=== PATIENT | male | born 1935 | race Caucasian/White ===

== ENCOUNTER 2020-08-20 23:58 | Inpatient (IN) | payer MEDICARE ==
[~2020-08-20] VITALS: Ht 172.7 cm; Wt 81.2 kg
--- NOTE | 2020-08-21 00:10 | PHYS DOC ---
Past History Past Medical History: Arthritis, CAD, Hypertension General Adult HPI: HPI: ".. I was digging a ditch for an electrical line to the garage .. the other day.. probably over did.. I got this Rt. shoulder pain.. an head ache ever since.. but I came in because I keep getting ..hits of pain.. .. my chest.. it here on Lt side.. I was told I go bad cardiac.. and I got dye in my heart once.. but they said hold off a while longer.. I see Dr. rOtiz usually.. and a Dr. Duffy .. at [facility] in the past... I got a younger girl she's 72.. maybe she too young for me.. she made me come in..." "I ve been putting he methylating patches on this right shoulder... But did not do much..." " The other reason .. I came .. in was my Blood pressure cuff was reading high..." Patient is a 84 year old male who presents with above hx and complaints of chest pain has been intermittent for the last few weeks. "Hits" in this Lt chest have been more frequently after he drug a a ditch for a electric line to his garage. Patient does have a history of previous cardiac disease, hypertension, elevated cholesterol, arthritis. Patient states he had a diet test a couple of years ago that showed he had coronary artery disease. Patient advised that time I told him no acute intervention was needed. Patient normally follows with Dr. Ortiz. Patient has follow-up with Dr. Duffy Cardiology at [facility]. Patient states he has has had a headache and that is why start checking his blood pressure was showed it was elevated at home. Patient also has been wearing pain patches on right shoulder. Patient states pain in right shoulder started after digging a ditch for electrical lying to his garage. 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 Has been exposed to asbestos in the past on tanks that were wrapped with it and the various refineries. The patient denies any change in his meds. Does take a da renetta aspirin. Has had a little more frequent nonproductive cough. Patient denies any fever or chills. Patient denies any specific ill contacts. Patient denies any travel outside [facility]. Review of Systems: Review of Systems: Constitutional: Denies fever or chills Eyes: Denies change in visual acuity HENT: Denies nasal congestion or sore throat Respiratory: Denies cough or shortness of breath Cardiovascular: Complains of left chest wall pain " Hits" GI: Denies abdominal pain, nausea, vomiting, bloody stools or diarrhea : Complains sometimes it difficult for him to pee Musculoskeletal: Complains of right arm pain and shoulder pain Integument: Denies rash Neurologic: Complains of headache. Denies, focal weakness or sensory changes Endocrine: Denies polyuria or polydipsia Lymphatic: Denies swollen glands Psychiatric: Denies depression or anxiety Heart Score: HEART Score for Chest Pain: HEART Score for Chest Pain Response (Comments) Value History Moderately Suspicious 1 ECG Nonspecific Repolarizatio 1 Age > 65 2 Risk Factors 1 or 2 Risk Factors 1 Troponin < Normal Limit 0 Total 5 Risk Factors: Risk Factors: DM, Current or recent (<one month) smoker, HTN, HLP, family history of CAD, obesity. Risk Scores: Score 0 - 3: 2.5% MACE over next 6 weeks - Discharge Home Score 4 - 6: 20.3% MACE over next 6 weeks - Admit for Clinical Observation Score 7 - 10: 72.7% MACE over next 6 weeks - Early Invasive Strategies Family History: Family History: Noncontributory to presentation Current Medications: Current Meds: See nursing for him at home meds Allergies: Allergies: Allergic to penicillin Physical Exam: PE: Constitutional: no acute distress, non-toxic appearance. [] HENT: Normocephalic, atraumatic, bilateral external ears normal, oropharynx moist, no oral exudates, nose normal. [] Eyes: PERRLA, EOMI, conjunctiva normal, no discharge. [] Neck: Normal range of motion, right trapezius tenderness, some Rt. trapezius spasm, , no stridor. [] Cardiovascular:Heart rate regular rhythm, no murmur, PMI to the left Lungs & Thorax: Bilateral breath sounds equal apex with few scattered wheezes on auscultation . Does have some basilar rub s and crackles.. Abdomen: Bowel sounds normal, soft, no tenderness, no masses, no pulsatile masses. [] Skin: Warm, dry, no erythema, no rash. Poor turgor Back: No tenderness, no CVA tenderness. [] Extremities: Right shoulder deltoid tenderness, does have crepitation with range of motion in right shoulder, currently patient has 2 pain patches on his right shoulder no cyanosis, no clubbing, ROM intact, no edema. Arthritic changes. Patient is extremely hard of hearing. Neurologic: Alert and oriented X 3, moves all extremities on request, has distal sensory,, no focal deficits noted. [] Psychologic: Affect anxious, judgement normal, mood normal. [] EKG: EKG: My interpretation EKG shows a sinus rhythm at 81 bpm. He has right axis deviation. He has a right bundle branch block. No findings of acute STEMI with contralateral changes. [] Radiology/Procedures: Radiology/Procedures: [place] [address] IMAGING REPORT Signed PATIENT: JUANITA NEWBERRY ACCOUNT: [id number] : 1935 LOCATION: ER AGE: 84 SEX: M EXAM STATUS: PRE ER ORD. PHYSICIAN: WARD CHUA MD REASON: pain PROCEDURE: SHOULDER 2+V RIGHT EXAM: SHOULDER 2+V RIGHT 08/21/2020 1:37 AM CLINICAL INDICATION:Pain COMPARISON:None TECHNIQUE:3 views of the right shoulder FINDINGS:No acute fracture. Alignment is normal. There is are chronic bony changes at the greater tuberosity. Mild acromioclavicular degenerative joint disease. Subacromial space is normal. IMPRESSION: 1. No acute osseous abnormality. 2. Chronic bony changes at the greater tuberosity suggests chronic rotator cuff pathology. Electronically signed by: Anita Sifuentes MD (08/21/2020 2:55 AM) [id number] DICTATED AND SIGNED BY: ANITA SIFUENTES MD DATE: 08/21/20 0255 CC: WARD CHUA MD; APRIL ORTIZ MD ~ [address] [address] IMAGING REPORT Signed PATIENT: JUANITA NEWBERRY ACCOUNT: [id number] : 1935 LOCATION: ER AGE: 84 SEX: M EXAM STATUS: PRE ER ORD. PHYSICIAN: WARD CHUA MD REASON: head ache, neck pain PROCEDURE: CT HEAD AND CERVICAL SPINE WO EXAM: CT head and cervical spine without contrast INDICATION: Headache and back pain COMPARISON: None TECHNIQUE: Axial CT imaging through the head without intravenous contrast. Sagittal and coronal reformats were obtained. One or more of the following individualized dose reduction techniques were utilized for this examination: 1. Automated exposure control 2. Adjustment of the mA and/or kV according to patient size 3. Use of iterative reconstruction technique. FINDINGS: CT head: The ventricles and sulci are mildly enlarged, reflecting age-related volume loss. Blanco-white matter differentiation is maintained. There is no intracranial hemorrhage, acute infarct, or mass lesion. Basal cisterns are clear. The skull and scalp are intact. Paranasal sinuses and mastoid air cells are clear. Globes and orbits are intact.. CT cervical spine: No acute fracture. There is 3 mm anterolisthesis of C2 on C3 and C3 on C4. Straightening of lordosis. The craniocervical junction and atlantoaxial interval are maintained. There is severe disc space narrowing at C6-C7 and moderate disc space narrowing at C4-C5 and C5-C6. Small anterior osteophytes and uncovertebral joint proliferation at these levels. Severe left facet arthrosis at C2-C3 and severe right greater than left facet arthrosis at C3-C4. There is severe right foraminal narrowing at C4-C5 and severe right and moderate left foraminal narrowing C5-C6. Probable mild canal narrowing from C4-C5 through C6-C7. Prevertebral soft tissue is normal. IMPRESSION: 1. No acute intracranial abnormality. Mild volume loss. 2. No acute osseous abnormality. Multilevel canal and foraminal narrowing, as described. Electronically signed by: Anita Sifuentes MD (08/21/2020 2:48 AM) [id number] DICTATED AND SIGNED BY: ANITA SIFUENTES MD DATE: 08/21/20 0248 CC: WARD CHUA MD; APRIL ORTIZ MD ~ [place] [address] IMAGING REPORT Signed PATIENT: JUANITA NEWBERRY ACCOUNT: [id number] : 1935 LOCATION: ER AGE: 84 SEX: M EXAM STATUS: PRE ER ORD. PHYSICIAN: WARD CHUA MD REASON: cp, X A FEW HOURS PROCEDURE: PORTABLE CHEST 1V EXAM: PORTABLE CHEST 1V 08/21/2020 12:20 AM CLINICAL INDICATION: Chest pain for a few hours COMPARISON: None TECHNIQUE: AP upright view of the chest FINDINGS: The cardiomediastinal silhouette is normal for technique.. Lungs are well-expanded. There is mild left basilar opacities and probable bilateral retrocardiac opacities bilaterally. No pleural effusion, or pneumothorax. Probable pleural calcifications of the upper right lateral hemithorax. Pulmonary vascularity is normal. The thoracic skeleton is intact. IMPRESSION: Left basilar and probable bilateral retrocardiac opacities, which could be atelectasis or pneumonia. Lateral view may be useful to confirm. Electronically signed by: Anita Sifuentes MD (08/21/2020 1:41 AM) [id number] DICTATED AND SIGNED BY: ANITA SIFUENTES MD DATE: 08/21/20 0141 CC: WARD CHUA MD; APRIL ORTIZ MD ~ My interpretation of chest x-ray shows enlarged cardiac border. Degenerative joint changes. Appears to have pleural plaquing. [] Course & Med Decision Making: Course & Med Decision Making Pertinent Labs and Imaging studies reviewed. (See chart for details) Discussed presentation, testing and tx. plan with Dr. Agosto Admit with cardiology consult. Impression: 1. Chest Pain 2. HTN 3. Mild Leukocytosis 11.6 4. Pneumonia/ Bronchitis- Retrocardiac 5. Arthritis-DJD 7. Hematuria 8. 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 Departure Departure: Disposition: 01 DC HOME SELF CARE/HOMELESS Condition: STABLE Referrals: APRIL ORTIZ MD (PCP) Nico Disclaimer This chart was dictated in whole or in part using Voice Recognition software in a busy, high-work load, and often noisy Emergency Department environment. It may contain unintended and wholly unrecognized errors or omissions. WARD CHUA MD Aug 21, 2020 00:10
[2020-08-21 01:00] LABS: BASO # 0.1 x10^3/uL (0.0-0.2); BASO % 1 % (0-3); EOS # 0.3 x10^3/uL (0.0-0.7); EOS % 3 % (0-3); HEMATOCRIT 43.7 % (39.0-53.0); HEMOGLOBIN 14.6 g/dL (13.0-17.5); LYMPH # 2.2 x10^3/uL (1.0-4.8); LYMPH % 19 % (24-48); MEAN CORPUSCULAR HEMOGLOBIN 31 pg (25-35); MEAN CORPUSCULAR HGB CONC 33 g/dL (31-37); MEAN CORPUSCULAR VOLUME 94 fL (79-100); MONO # 1.1 x10^3/uL (0.0-1.1); MONO % 10 % (0-9); NEUT # 7.9 x10^3uL (1.8-7.7); NEUT % 68 % (31-73); PLATELET COUNT 183 x10^3/uL (140-400); RED BLOOD COUNT 4.63 x10^6/uL (4.30-5.70); RED CELL DISTRIBUTION WIDTH 13.2 % (11.5-14.5); WHITE BLOOD COUNT 11.6 x10^3/uL (4.0-11.0)
[2020-08-21] MEDS ORDERED: ASPIRIN CHEWABLE 81 MG TABLET. PO ONE (01:00)
[2020-08-21 01:11] LABS: BILIRUBIN,URINE NEG (NEG); CLARITY,URINE CLEAR; COLOR,URINE YELLOW; GLUCOSE,URINE NEG (NEG)
[2020-08-21 01:12] LABS: BACTERIA,URINE 0 /HPF (0-FEW); NITRITE,URINE NEG (NEG); RBC,URINE 20-40 /HPF (0-2); SQUAMOUS EPITHELIAL CELL,UR OCC /LPF; UROBILINOGEN,URINE 0.2 mg/dL (0.2 mg/dL)
[2020-08-21 01:16] LABS: CALCIUM 9.2 mg/dL (8.5-10.1); CREATININE 1.3 mg/dL (0.7-1.3); GFR 52.9; POTASSIUM 4.6 mmol/L (3.5-5.1)
[2020-08-21 01:17] LABS: BARBITURATES NEG (NEG); BENZODIAZEPINES NEG (NEG); CANNABINOIDS NEG (NEG); COCAINE NEG (NEG); METHADONE NEG (NEG); OPIATES NEG (NEG); PHENCYCLIDINE NEG (NEG)
[2020-08-21 01:18] LABS: AMPHETAMINE/METHAMPHETAMINE NEG (NEG)
[2020-08-21 01:33] LABS: ALBUMIN 3.4 g/dL (3.4-5.0); DIRECT BILIRUBIN 0.1 mg/dL (0.0-0.2); MAGNESIUM 2.2 mg/dL (1.8-2.4); TOTAL BILIRUBIN 0.4 mg/dL (0.2-1.0); TOTAL PROTEIN 7.3 g/dL (6.4-8.2)
--- NOTE | 2020-08-21 01:45 | RAD ---
EXAM: PORTABLE CHEST 1V 08/21/2020 12:20 AM CLINICAL INDICATION: Chest pain for a few hours COMPARISON: None TECHNIQUE: AP upright view of the chest FINDINGS: The cardiomediastinal silhouette is normal for technique.. Lungs are well-expanded. There is mild left basilar opacities and probable bilateral retrocardiac opacities bilaterally. No pleural effusion, or pneumothorax. Probable pleural calcifications of the upper right lateral hemithorax. Pulmonary vascularity is normal. The thoracic skeleton is intact. IMPRESSION: Left basilar and probable bilateral retrocardiac opacities, which could be atelectasis or pneumonia. Lateral view may be useful to confirm. Electronically signed by: Anita Sifuentes MD (08/21/2020 1:41 AM) [id number]
[2020-08-21] MEDS ORDERED: LORazepam 1 MG TABLET PO ONE (02:00)
[2020-08-21] MEDS ORDERED: ONDANSETRON PF 4 MG/2 ML VIAL. IVP PRN (02:30)
[2020-08-21] MEDS ORDERED: AZITHROMYCIN 250 MG TABLET. PO ONE (02:30)
--- NOTE | 2020-08-21 02:30 | EKG ---
[address] [address] Test Date: 2020-08-21 Test Time: 00:23:09 Pat Name: JUANITA NEWBERRY Department: Room: Gender: M Locomotive Engineer Diesel: : 1935 Requested By: WARD CHUA Order Number: [id number] Reading MD: Pee Yo MD Measurements Intervals [place] Rate: 81 P: 34 CA: 148 QRS: 164 QRSD: 126 T: 24 QT: 376 QTc: 437 Interpretive Statements SINUS RHYTHM ABNORMAL RIGHT AXIS DEVIATION RIGHT BUNDLE BRANCH BLOCK CONSIDER RIGHT VENTRICULAR HYPERTROPHY Electronically Signed On 08-21-2020 14:11:42 CDT by Pee Yo MD
--- NOTE | 2020-08-21 02:46 | RAD ---
EXAM: CT CHEST WITHOUT CONTRAST HISTORY: Pain COMPARISON: None TECHNIQUE: Helical CT of the chest performed without contrast. Coronal and sagittal reformats were obtained. One or more of the following individualized dose reduction techniques were utilized for this examination: 1. Automated exposure control 2. Adjustment of the mA and/or kV according to patient size 3. Use of iterative reconstruction technique. FINDINGS: Thyroid gland and thoracic inlet: Normal. Heart and great vessels: Heart is normal in size. No pericardial effusion. There is three-vessel calcific coronary artery atherosclerosis. Thoracic aorta is normal in caliber. Mild calcifications in the thoracic aorta. Mediastinum and yuni: No lymphadenopathy. Lungs and pleura: There is mild bilateral diffuse subpleural reticular changes. There are calcifications in the lung bases along the diaphragm. Bilateral pleural plaques are noted. No pleural effusion. Chest wall and axillae: No axillary lymphadenopathy. Chest wall is normal in appearance. Upper abdomen: Unremarkable. Bones: No acute osseous abnormality. Mild degenerative disc disease in the midthoracic spine. IMPRESSION: 1. Findings of asbestos-related lung disease with bilateral calcified pleural plaques and interstitial changes in the lungs. 2. Coronary artery calcifications. Electronically signed by: Anita Sifuentes MD (08/21/2020 2:43 AM) [id number]
--- NOTE | 2020-08-21 02:51 | RAD ---
EXAM: CT head and cervical spine without contrast INDICATION: Headache and back pain COMPARISON: None TECHNIQUE: Axial CT imaging through the head without intravenous contrast. Sagittal and coronal reformats were obtained. One or more of the following individualized dose reduction techniques were utilized for this examination: 1. Automated exposure control 2. Adjustment of the mA and/or kV according to patient size 3. Use of iterative reconstruction technique. FINDINGS: CT head: The ventricles and sulci are mildly enlarged, reflecting age-related volume loss. Blanco-white matter differentiation is maintained. There is no intracranial hemorrhage, acute infarct, or mass lesion. Basal cisterns are clear. The skull and scalp are intact. Paranasal sinuses and mastoid air cells are clear. Globes and orbits are intact.. CT cervical spine: No acute fracture. There is 3 mm anterolisthesis of C2 on C3 and C3 on C4. Straightening of lordosis. The craniocervical junction and atlantoaxial interval are maintained. There is severe disc space narrowing at C6-C7 and moderate disc space narrowing at C4-C5 and C5-C6. Small anterior osteophytes and uncovertebral joint proliferation at these levels. Severe left facet arthrosis at C2-C3 and severe right greater than left facet arthrosis at C3-C4. There is severe right foraminal narrowing at C4-C5 and severe right and moderate left foraminal narrowing C5-C6. Probable mild canal narrowing from C4-C5 through C6-C7. Prevertebral soft tissue is normal. IMPRESSION: 1. No acute intracranial abnormality. Mild volume loss. 2. No acute osseous abnormality. Multilevel canal and foraminal narrowing, as described. Electronically signed by: Anita Sifuentes MD (08/21/2020 2:48 AM) [id number]
--- NOTE | 2020-08-21 02:57 | RAD ---
EXAM: SHOULDER 2+V RIGHT 08/21/2020 1:37 AM CLINICAL INDICATION:Pain COMPARISON:None TECHNIQUE:3 views of the right shoulder FINDINGS:No acute fracture. Alignment is normal. There is are chronic bony changes at the greater tuberosity. Mild acromioclavicular degenerative joint disease. Subacromial space is normal. IMPRESSION: 1. No acute osseous abnormality. 2. Chronic bony changes at the greater tuberosity suggests chronic rotator cuff pathology. Electronically signed by: Anita Sifuentes MD (08/21/2020 2:55 AM) [id number]
[2020-08-21 04:06] VITALS: BP 155/80
--- NOTE | 2020-08-21 05:03 | NUR ---
The patient, JUANITA NEWBERRY, 84 y/o, M admitted by SON ARTIS MD, was given written information regarding hospital policies, unit procedures and contact persons. Valuables were checked and noted. PT presented for elevated BP for several hours at home along with RT upper arm pain. PT states he has been digging a ditch for one of his girlfriends and strained his shoulder. PT with 8/10 pain at this time for the shoulder. PT states he has his pain patches on (noted to ABBIE x2). PT wanted to stay in most of his clothes as he states he will be discharged by noon. PT declines flu immunization at this time. Oriented PT to unit.
[2020-08-21] MEDS: IPRATRPIUM/ALBUTEROL 0.5/2.5MG 3 ML NEBU. NEB SCH ×2 (05:29→11:24)
[2020-08-21 06:25] VITALS: BP 113/53
[2020-08-21] MEDS ORDERED: ASPIRIN CHEWABLE 81 MG TABLET. PO SCH (08:00)
--- NOTE | 2020-08-21 08:03 | PDOC2 ---
CARDIAC CONSULT DATE OF CONSULT DOS: DATE: 08/21/20 TIME: 07:57 REASON FOR CONSULT Reason for Consult Chest pain, HTN REFERRING PHYSICIAN Referring Physician Dr. Miranda SOURCE Source: Chart review, Patient HPI History of Present Illness This is an 84 yo male who presented secondary to chest pain, high blood pressure, and headache. Patient is somewhat of a poor historian. Report he was sitting watching TV yesterday and was getting intermittent stabbing pain in his left chest. When he describes the pain, he points to his left upper abdominal quadrant, but reports it was his heart. Pain was non-radiating. No associated dizziness, diaphoresis, palpitations, or SOA. Did complain of POWER and reports that his blood pressure was elevated. Reports he sees Dr. Duffy with [facility] cardiology. Reports having heart cath without intervention a couple of years ago. No recent fevers, illness. Denies doing any physical work yesterday, but review of ED note states he was out digging an electrical line. PAST MEDICAL HISTORY Cardiovascular: HTN, hyperipidemia Psych: Anxiety, Depression PAST SURGICAL HISTORY Past Surgical History: No pertinent history FAMILY HISTORY Family History: Cancer, Heart Disease SOCIAL HISTORY Smoke: No ALCOHOL: none Drugs: None Lives: Alone CURRENT MEDICATIONS Current Medications Current Medications Aspirin (Aspirin Chewable) 324 mg 1X ONCE PO Last administered on 08/21/20at 00:34; Start 08/21/20 at 01:00; Stop 08/21/20 at 01:01; Status DC Lorazepam (Ativan) 2 mg 1X ONCE PO Last administered on 08/21/20at 02:15; Start 08/21/20 at 02:00; Stop 08/21/20 at 02:01; Status DC Azithromycin (Zithromax) 500 mg 1X ONCE PO Last administered on 08/21/20at 02:17; Start 08/21/20 at 02:30; Stop 08/21/20 at 02:31; Status DC Ondansetron HCl (Zofran) 4 mg PRN Q4HRS PRN IVP NAUSEA/VOMITING; Start 08/21/20 at 02:30; Stop 08/22/20 at 02:29 Albuterol/ Ipratropium (Duoneb) 3 ml RTQID NEB ; Start 08/21/20 at 08:00; Stop 08/22/20 at 07:59 Aspirin (Aspirin Chewable) 81 mg DAILYWBKFT PO ; Start 08/21/20 at 08:00 Azithromycin (Zithromax) 250 mg QHS PO ; Start 08/21/20 at 21:00 ALLERGIES Allergies: Coded Allergies: Penicillins (Verified Allergy, Intermediate, Swelling, 08/21/20) ROS Review of Systems 14 point ROS conducted with pertinent positives noted above in HPI PHYSICAL EXAM General: Alert, Oriented X3, Cooperative, No acute distress HEENT: Atraumatic, Mucous membr. moist/pink Lungs: Clear to auscultation Heart: Regular rate, Normal S1, Normal S2 Abdomen: Soft, No tenderness Extremities: No edema, Normal pulses Skin: No breakdown Neuro: Normal speech, Sensation intact Psych/Mental Status: Mental status NL, Mood NL, Other MUSCULOSKELETAL: Osteoarthritic changes both hands VITALS Vital Signs Vital Signs Date Time Temp Pulse Resp B/P (MAP) Pulse Ox O2 Delivery O2 Flow Rate FiO2 08/21/20 06:25 98.5 80 20 113/53 (73) 96 Room Air LABS LABS Laboratory Tests Test 08/21/20 00:24 08/21/20 00:30 White Blood Count 11.6 x10^3/uL (4.0-11.0) Red Blood Count 4.63 x10^6/uL (4.30-5.70) Hemoglobin 14.6 g/dL (13.0-17.5) Hematocrit 43.7 % (39.0-53.0) Mean Corpuscular Volume 94 fL (79-100) Mean Corpuscular Hemoglobin 31 pg (25-35) Mean Corpuscular Hemoglobin Concent 33 g/dL (31-37) Red Cell Distribution Width 13.2 % (11.5-14.5) Platelet Count 183 x10^3/uL (140-400) Neutrophils (%) (Auto) 68 % (31-73) Lymphocytes (%) (Auto) 19 % (24-48) Monocytes (%) (Auto) 10 % (0-9) Eosinophils (%) (Auto) 3 % (0-3) Basophils (%) (Auto) 1 % (0-3) Neutrophils # (Auto) 7.9 x10^3uL (1.8-7.7) Lymphocytes # (Auto) 2.2 x10^3/uL (1.0-4.8) Monocytes # (Auto) 1.1 x10^3/uL (0.0-1.1) Eosinophils # (Auto) 0.3 x10^3/uL (0.0-0.7) Basophils # (Auto) 0.1 x10^3/uL (0.0-0.2) Prothrombin Time 10.9 SEC (9.4-11.4) Prothromb Time International Ratio 1.1 (0.9-1.1) Activated Partial Thromboplast Time 24 SEC (23-33) D-Dimer (Gavi) 1.33 mg/L (0.00-0.50) Sodium Level 138 mmol/L (136-145) Potassium Level 4.6 mmol/L (3.5-5.1) Chloride Level 104 mmol/L (98-107) Carbon Dioxide Level 23 mmol/L (21-32) Anion Gap 11 (6-14) Blood Urea Nitrogen 32 mg/dL (8-26) Creatinine 1.3 mg/dL (0.7-1.3) Estimated GFR (Cockcroft-Gault) 52.9 Glucose Level 105 mg/dL (70-99) Calcium Level 9.2 mg/dL (8.5-10.1) Magnesium Level 2.2 mg/dL (1.8-2.4) Total Bilirubin 0.4 mg/dL (0.2-1.0) Direct Bilirubin 0.1 mg/dL (0.0-0.2) Aspartate Amino Transf (AST/SGOT) 20 U/L (15-37) Alanine Aminotransferase (ALT/SGPT) 40 U/L (16-63) Alkaline Phosphatase 60 U/L (46-116) Creatine Kinase 518 U/L (39-308) Troponin I Quantitative < 0.017 ng/mL (0-0.055) KR-Ywy-R-Type Natriuretic Peptide 27 pg/mL (0-449) Total Protein 7.3 g/dL (6.4-8.2) Albumin 3.4 g/dL (3.4-5.0) Lipase 128 U/L (73-393) Urine Collection Type Unknown Urine Color Yellow Urine Clarity Clear Urine pH 5.0 Urine Specific [place] 1.025 Urine Protein Neg (NEG-TRACE) Urine Glucose (UA) Neg mg/dL (NEG) Urine Ketones (Stick) Neg mg/dL (NEG) Urine Blood Small (NEG) Urine Nitrite Neg (NEG) Urine Bilirubin Neg (NEG) Urine Urobilinogen Dipstick 0.2 mg/dL (0.2 mg/dL) Urine Leukocyte Esterase Neg (NEG) Urine RBC 20-40 /HPF (0-2) Urine WBC 1-4 /HPF (0-4) Urine Squamous Epithelial Cells Occ /LPF Urine Bacteria 0 /HPF (0-FEW) Urine Opiates Screen Neg (NEG) Urine Methadone Screen Neg (NEG) Urine Barbiturates Neg (NEG) Urine Phencyclidine Screen Neg (NEG) Urine Amphetamine/Methamphetamine Neg (NEG) Urine Benzodiazepines Screen Neg (NEG) Urine Cocaine Screen Neg (NEG) Urine Cannabinoids Screen Neg (NEG) Urine Ethyl Alcohol Neg (NEG) ASSESSMENT/PLAN Assessment/Plan 1. Chest pain, atypical; initial trop negative. EKG with RBBB. No previous EKG for comparison 2. Hypertension; controlled 3. Hyperlipidemia 4. CAD; CT chest with coronary artery calcifications Recommendations ASA Trend troponin Lipids, TSH. Resume home meds when list is obtained Is anxious to be discharged Outpatient ischemic evaluation if trop remains negative Supportive care IVANIA ARGUELLES APRN Aug 21, 2020 08:03
[2020-08-21] MEDS ORDERED: MELO15TA23 PO (09:23)
[2020-08-21] MEDS ORDERED: LISI-334 PO (09:23)
[2020-08-21] MEDS ORDERED: SIMV40TA18 PO (09:23)
[2020-08-21] MEDS ORDERED: OMEP20TA8 PO (09:23)
--- NOTE | 2020-08-21 11:28 | NUR ---
NURSING NOTE PT ATTEMPTING TO LEAVE AMA, SPOKE WITH PT ABOUT ELEVATED WBC COUNT, CHEST XRAY AND POSSIBLE PNEUMONIA DX PER ER REPORT AND NEEDING ANTIBIOTIC AND ENCOURAGED PT TO STAY UNTIL DR ARTIS HERE TO ASSESS. PT FAMILY MEMBER, MARIE, ON PHONE, PT HANDED THIS NURSE THE PHONE, INFORMED PT FAMILY MEMBER THAT PT ATTEMPTING TO LEAVE, AND IF PT LEAVES, THIS NURSE IS UNABLE TO GIVE PT THE PRESCRIPTIONS THAT ARE NEEDED FOR DISCHARGE. PT FAMILY MEMBER WAS ABLE TO TALK PT INTO STAYING UNTIL THE DR GETS HERE TO SEE HIM. BEBETO MEMBRENO.
[2020-08-21 11:45] VITALS: BP 137/76
--- NOTE | 2020-08-21 13:55 | NUR ---
NURSING NOTE DISCHARGE PT DISCHARGED HOME VIA AMBULATION ACCOMPANIED BY SELF. 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 PT HAS ANTIBIOTIC DOXYCYCLINE CALLED IN TO [facility]. PT IS TO FOLLOW UP CARDIOLOGY FOR OUTPT STRESS AND ECHO. THEY WILL CONTACT PT, PT GIVEN INFO INCASE THEY DO NOT CALL HIM. NO COMPLICATIONS. BEBETO MEMBRENO.
--- NOTE | 2020-08-21 14:42 | SSS ---
ADMIT DATE: 08/21/2020 HISTORY OF PRESENT ILLNESS: The patient is an 84-year-old male patient who came to the Emergency Room, did complain of chest pain, mostly in the left side. He apparently does have a history of previous cardiac disease, hypertension, elevated cholesterol and given that his previous history of cardiac disease, a decision was made to admit him and do 2 sets of cardiac enzymes and consult the Cardiology team. While in the Emergency Room, his chest x-ray also showed that he has left basilar and probable bilateral retrocardiac opacities, which could be atelectasis or pneumonia and therefore, the 2 sets of cardiac enzymes were within normal limits, which showed a troponin to be less than 0.017. His white cell count was slightly high at 11,600 and his D-dimer was elevated and therefore, he did have a CT chest without contrast, which basically showed that the patient has finding of asbestos-related lung disease with bilateral calcified plaques, interstitial changes in the lungs, coronary artery calcification as he ruled out myocardial infarction. The Cardiology team recommended outpatient ischemic evaluation and therefore, the patient was discharged home. PAST MEDICAL HISTORY: Significant for hypertension, hyperlipidemia, gastroesophageal reflux disease, generalized osteoarthritis, anxiety and depression. PAST SURGICAL HISTORY: Significant for bilateral cataract extraction, intraocular implant placement. FAMILY HISTORY: Positive for cancer, heart disease. SOCIAL HISTORY: He lives with his friend. He does not smoke, but drinks beer occasionally. He does not use any drugs. He is retired. 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 REVIEW OF SYSTEMS: As per history of present illness. PHYSICAL EXAMINATION: GENERAL: On examining him, he looked well and was clearly in no apparent respiratory distress. No pallor, jaundice, cyanosis or thyromegaly. No jugular venous distention or limb edema. VITAL SIGNS: His heart rate was 74, blood pressure was 155/80, temperature was 98.2, respiratory rate was 20, and oxygen saturation was 97%. HEAD, EYES, EARS, NOSE AND THROAT: Normocephalic, atraumatic. NECK: Supple. HEART: Showed normal first and second heart sounds with no gallop or murmur. CHEST: Clear to auscultation. No crepitation or rhonchi. ABDOMEN: Distended, soft, nontender. NEUROLOGICALLY: He was hard of hearing, but otherwise all his cranial nerves are intact. EXTREMITIES: He moves extremities without difficulty, ambulates without assistance or assistive devices. LABORATORY DATA: His white cell count was 11,600, hemoglobin 14.6, hematocrit 44, MCV 94 and platelet count of 183,000. His chemistry showed a serum sodium of 138, potassium 4.6, chloride 104, bicarbonate 23, anion gap of 11, BUN 32, creatinine 1.3, estimated GFR 52 mL per minute, his glucose 105, calcium was 9.2, magnesium was 2.2. Total bilirubin, AST, ALT, alkaline phosphatase were normal. CK was 518, total protein 7.3, albumin 3.3. He has 2 sets of cardiac enzymes, which showed troponin to be less than 0.017. His TSH was slightly elevated at 4.955. His prothrombin time was 10.9, INR 1.1, aPTT was 24 and D-dimer was 1.33. His urinalysis essentially unremarkable. Toxic screen was negative. He did have a chest x-ray, which basically showed left basilar and probable bilateral retrocardiac opacities, which could be atelectasis or pneumonia, lateral view may be useful. His shoulder x-ray showed no acute osseous abnormality, chronic bony changes at the greater tuberosity suggest chronic rotator cuff pathology. CT scan of the head and cervical spine showed no acute intracranial abnormality, mild volume loss, no acute osseous abnormality, multilevel canal and foraminal narrowing. As the myocardial infarction was ruled out, a decision was made to discharge him home to continue on his lisinopril 20 mg once a day, meloxicam 15 mg daily, omeprazole 20 mg daily, and simvastatin 40 mg at bedtime. FINAL DISCHARGE DIAGNOSES: Chest pain, atypical, myocardial infarction ruled out. Hypertension, hyperlipidemia, coronary artery disease, CT scan showed coronary artery calcification. Plan is to discharge home and arrangement has been made for ischemic evaluation as an outpatient. SON ARTIS MD DR: PUSHPA/rocio JOB#: [id number] / [id number]
[2020-08-21] MEDS ORDERED: AZITHROMYCIN 250 MG TABLET. PO SCH (21:00)
[2020-08-21] MEDS ORDERED: LACTOBACILLUS RHAMNOSUS GG 1 CAPSULE. PO SCH (21:00)
== END 2020-08-21 13:56 | disposition home or self-care (01) | DRG 205 ==
LOC: ER 23:58 → 1 SOUTH 08-21 03:33
PROVIDERS: ADMIT Internal Medicine; ATTEND Internal Medicine
DX: M94.0 Chondrocostal junction syndrome [Tietze] (principal); J15.6 Pneumonia due to other Gram-negative bacteria; J15.9 Unspecified bacterial pneumonia; E78.00 Pure hypercholesterolemia, unspecified; E78.5 Hyperlipidemia, unspecified; I25.10 Atherosclerotic heart disease of native coronary artery without angina pectoris; I10 Essential (primary) hypertension; I45.10 Unspecified right bundle-branch block; Z77.090 Contact with and (suspected) exposure to asbestos; M15.9 Polyosteoarthritis, unspecified; J40 Bronchitis, not specified as acute or chronic; J61 Pneumoconiosis due to asbestos and other mineral fibers; Z96.1 Presence of intraocular lens; F32.9 Major depressive disorder, single episode, unspecified; F41.9 Anxiety disorder, unspecified; K21.9 Gastro-esophageal reflux disease without esophagitis; R31.9 Hematuria, unspecified; Z98.42 Cataract extraction status, left eye; Z98.41 Cataract extraction status, right eye; Z79.82 Long term (current) use of aspirin; Z80.9 Family history of malignant neoplasm, unspecified; Z82.49 Family history of ischemic heart disease and other diseases of the circulatory system; Z88.0 Allergy status to penicillin
CPT/HCPCS: 36415; 70450; 71045; 71250; 72125; 73030; 80048; 80061; 80076; 80307; 81001; 82550; 83690; 83735; 83880; 84443; 84484; 85025; 85379; 85610; 85730; 93005; 94640; J0456; J0696; 99285-25

== ENCOUNTER → 2021-04-27 | Outpatient (CLI) | payer MEDICARE ==
[~2021-04-27] MED LIST: LISI20TA18 PO; MELO15TA23 PO; OMEP20TA8 PO; SIMV40TA18 PO
--- NOTE | 2021-04-27 16:33 | RAD ---
Site ID: [id number] EXAMINATION: XR [id number]_LT 1-2 VIEWS. HISTORY: 85 years Male left knee pain after fall COMPARISON: None. FINDINGS: No fracture, dislocation or radiopaque foreign body. There is moderate joint space narrowing and t he prominent osteophytes are noted in the 3 compartments of the knee. There is a small joint effusion suggested. IMPRESSION: Moderate to advanced osteoarthritis. Small joint effusion Electronically signed by: Kurt Roberts MD (04/27/2021 4:30 PM) [id number]
--- NOTE | 2021-04-27 16:37 | RAD ---
XR LUMBAR SPINE 2-3V History: Reason: FALL, PAIN / Spl. Instructions: / History: Technique: 3 views lumbar spine. Comparison: None. Findings: Mild rightward curvature of the lumbar spine. Grade 1 anterolisthesis L5 on S1 potentially due to par s defects. Mild retrolisthesis L4 on L5 and L3 on L4 as well as L2 on L3. Moderate multilevel degener ative disc changes most prominent L4-5 and L5-S1. Lower lumbar facet arthropathy. Vascular calcificat ions. Impression: 1. Moderate multilevel lumbar spondylosis. 2. Grade 1 anterolisthesis L5 on S1. Electronically signed by: Harsha Kennedy DO (04/27/2021 4:35 PM) [id number]
--- NOTE | 2021-04-27 16:39 | RAD ---
XR HIP (WITH OR WITHOUT PELVIS) 1 VIEW, XR FEMUR_LEFT 1 VIEW History: Reason: FALL, PAIN / Spl. Instructions: / History: Technique: AP view the pelvis and additional views of bilateral hips and 2 views left femur. Comparison: None. Findings: Normal alignment of the hips. No fracture. Lower lumbar spondylosis. Chronic healed left proximal femur fracture. Vascular calcifications. No acute fracture. Advanced lef t knee DJD. Impression: 1. No acute osseous abnormality. 2. Chronic left proximal femur fracture. 3. Advanced left knee DJD. Electronically signed by: Harsha Kennedy DO (04/27/2021 4:37 PM) [id number]
== END ==
LOC: PMG 11:28
PROVIDERS: ATTEND Family Medicine
DX: S72.8X2A Other fracture of left femur, initial encounter for closed fracture (principal); M47.816 Spondylosis without myelopathy or radiculopathy, lumbar region; M43.17 Spondylolisthesis, lumbosacral region; M17.12 Unilateral primary osteoarthritis, left knee; M25.462 Effusion, left knee; X58.XXXA Exposure to other specified factors, initial encounter; Y93.89 Activity, other specified; Y92.89 Other specified places as the place of occurrence of the external cause; Y99.8 Other external cause status
CPT/HCPCS: 72100; 73521; 73552; 73560